=== PATIENT | female | born 1990 | race Caucasian/White ===

== ENCOUNTER 2021-04-10 13:54 | Emergency (ER) | payer OTHER ==
[~2021-04-10] VITALS: Ht 160 cm; Wt 59.0 kg
[2021-04-10] MEDS ORDERED: NEXPLANON68 MG SUBQ (14:14)
[2021-04-10] MEDS ORDERED: ADDERALL 30 MG30 MG PO (14:14)
[2021-04-10] MEDS ORDERED: LUVOX 50MG TABL50 M1 PO (14:14)
[2021-04-10] MEDS ORDERED: VRAYLAR3 MG PO (14:15)
[2021-04-10] MEDS ORDERED: CLONAZEPAM 0.50.5 M1 PO (14:15)
[2021-04-10] MEDS ORDERED: PROPRANOLOL 20M20 M1 PO (14:15)
[2021-04-10] MEDS ORDERED: SINGULAIR 10 MG10 M1 PO (14:15)
[2021-04-10] MEDS ORDERED: MINIPRESS2 MG PO (14:16)
[2021-04-10] MEDS ORDERED: REMERON15 M2 PO (14:16)
[2021-04-10 15:24] LABS: HEMATOCRIT 45.3 % (37.0-47.0); HEMOGLOBIN 15.7 gm/dL (12.0-15.0); MCH 32.4 pg (26.0-34.0); MCHC 34.7 g/dL (28.0-37.0); MCV 93.5 fL (80.0-100.0); RBC 4.85 mil/uL (4.20-5.00); RDW-CV 12.8 % (10.5-14.5); WBC 8.8 thou/uL (4.0-11.0)
[2021-04-10 15:33] LABS: CALCIUM 8.5 mg/dL (8.5-10.1); CREATININE 0.8 mg/dL (0.6-1.3); POTASSIUM 3.9 mmol/L (3.5-5.1)
[2021-04-10 15:37] LABS: ALBUMIN 4.1 g/dL (3.4-5.0); TOTAL BILIRUBIN 0.3 mg/dL (<0.1-1.0); TOTAL PROTEIN 7.5 g/dL (6.4-8.2)
[2021-04-10 16:05] LABS: URINE BILIRUBIN NEGATIVE (Negative); URINE BLOOD NEGATIVE (Negative); URINE CLARITY CLOUDY; URINE COLOR YELLOW; URINE GLUCOSE-RANDOM NEGATIVE (Negative); URINE KETONES NEGATIVE (Negative); URINE LEUKOCYTES-REFLEX 1+ (Negative); URINE NITRITE-REFLEX NEGATIVE (Negative); URINE PROTEIN NEGATIVE (Negative); URINE UROBILINOGEN 0.2 E.U./dl (0.2-1.0)
[2021-04-10 16:18] LABS: AMORPHOUS PHOSPHATES Many /LPF (None Seen); CASTS None Seen /LPF (None Seen); MUCUS None Seen strn/LPF (None Seen); SQUAMOUS 0-3 Few /LPF (0-3); URINE WBC-REFLEX 6-15 Few /HPF (0-5)
[2021-04-10 16:19] LABS: CRYSTALS None Seen /LPF (None Seen); URINE RBC 0-2 Rare /HPF (0-2)
[2021-04-10] MEDS ORDERED: ZOFRAN ODT4 MG DISSOLVE (16:30)
[2021-04-10] MEDS ORDERED: MACROBID 100 M100 MG PO (16:30)
[2021-04-10 16:36] VITALS: BP 122/68
== END 2021-04-10 16:50 | disposition home or self-care (01) ==
LOC: M.ERS 13:54
PROVIDERS: Emergency Medicine Emergency Medical Services
DX: K52.9 Noninfective gastroenteritis and colitis, unspecified (principal); N39.0 Urinary tract infection, site not specified; Z88.1 Allergy status to other antibiotic agents; Z88.2 Allergy status to sulfonamides; Z79.899 Other long term (current) drug therapy; Z90.89 Acquired absence of other organs; Z90.49 Acquired absence of other specified parts of digestive tract